=== PATIENT | female | born 1975 ===

== ENCOUNTER 2022-01-30 04:02 | Inpatient (IN) | payer OTHER ==
[2022-01-25 17:04] VITALS: BMI 31.6
[2022-01-30] MEDS ORDERED: ePHEDrine SULFATE 50 MG/1 ML AMPULE ONE (07:26)
[2022-01-30] MEDS ORDERED: ONDANSETRON 4 MG/2 ML VIAL ONE (07:26)
[2022-01-30] MEDS ORDERED: DEXAMETHASONE SOD PHOSPHATE 4 MG/1 ML VIAL ONE (07:26)
[2022-01-30] MEDS ORDERED: FENTANYL CITRATE/PF 50 MCG/ML VIAL ONE ×5 (07:26→09:15)
[2022-01-30] MEDS ORDERED: LIDOCAINE HCL 2% 100 MG/5 ML DISP.SYRIN ONE (07:26)
[2022-01-30] MEDS ORDERED: PROPOFOL 20 ML ONE ×11 (07:27→10:02)
[2022-01-30] MEDS ORDERED: SUCCINYLCHOLINE CHLORIDE 200 MG/10 ML SYRINGE ONE (07:27)
[2022-01-30] MEDS ORDERED: ROCURONIUM BROMIDE 50 MG/5 ML SYRINGE ONE (07:27)
[2022-01-30] MEDS ORDERED: MIDAZOLAM HCL 2 MG/2 ML SINGLE DOSE VIAL ONE (07:28)
[2022-01-30] MEDS ORDERED: ACETAMINOPHEN INJECTION 100 ML IVPB ONE (08:54)
[2022-01-30] MEDS ORDERED: ceFAZolin SODIUM 1 GM VIAL ONE (09:08)
[2022-01-30] MEDS ORDERED: ceFAZolin 2 GRAM PREMIX BAG IVPB ONE (09:10)
[2022-01-30] MEDS ORDERED: VANCOMYCIN 1,000 MG VIAL (RESTRICTED TO ID ONLY) ONE (11:10)
[2022-01-30] MEDS ORDERED: HYDROmorphone HCl 2 MG/ML VIAL ONE ×2 (11:11→12:50)
[2022-01-30] MEDS ORDERED: oxyCODONE HCL 5 MG TABLET PO PRN ×2 (11:38)
[2022-01-30] MEDS ORDERED: ONDANSETRON 4 MG/2 ML VIAL IVPUSH PRN (11:38)
[2022-01-30] MEDS ORDERED: VANCOMYCIN 1,000 MG VIAL (RESTRICTED TO ID ONLY) IVPB ONE (11:40)
[2022-01-30] MEDS ORDERED: LACTATED RINGERS SOLUTION 1,000 ML/1,000 ML INFUS.BAG IV SCH ×2 (11:45→20:30)
[2022-01-30] MEDS ORDERED: HYDROmorphone HCl 2 MG/ML VIAL IVPUSH PRN ×2 (11:51)
[2022-01-30] MEDS ORDERED: PROMETHAZINE HCL 25 MG/1 ML VIAL IVPUSH PRN (11:52)
[2022-01-30] MEDS ORDERED: LACTATED RINGERS SOLUTION 1,000 ML IV SCH (12:00)
[2022-01-30] MEDS ORDERED: HYDROmorphone HCl 2 MG/ML VIAL IVPUSH ONE ×3 (12:55→17:45)
[2022-01-30] MEDS: DOCUSATE SODIUM 100 MG CAPSULE (FP) PO SCH ×2 (20:28→22:06)
[2022-01-30] MEDS ORDERED: ACETAMINOPHEN 1000 MG/100 ML BAG IVPB ONE (21:57)
[2022-01-30] MEDS: TOPIRAMATE 200 MG TABLET PO SCH (22:07)
[2022-01-31] MEDS ORDERED: HYDROmorphone HCl 2 MG/ML VIAL IVPUSH ONE ×2 (00:14→03:16)
[2022-01-31] MEDS: DOCUSATE SODIUM 100 MG CAPSULE (FP) PO SCH ×3 (05:25→22:09)
[2022-01-31] MEDS: TOPIRAMATE 200 MG TABLET PO SCH ×3 (08:08→22:08)
[2022-01-31 09:34] LABS: HEMATOCRIT 33.5 % (32.4-45.2); HEMOGLOBIN 11.2 GM/dL (10.7-15.3); MCH 27.7 pg (25.7-33.7); MCHC 33.5 g/dl (32.0-36.0); MEAN CELL VOLUME 82.8 fl (80-96); MEAN PLT VOLUME 7.7 fl (7.5-11.1); PLATELET COUNT 207 10^3/uL (134-434); RBC 4.05 M/mm3 (3.60-5.2); RDW 14.2 % (11.6-15.6); WHITE BLOOD COUNT 5.5 K/mm3 (4.0-10.0)
[2022-01-31 10:20] LABS: CALCIUM 8.3 mg/dL (8.5-10.1)
[2022-01-31 10:24] LABS: CREATININE 0.6 mg/dL (0.55-1.3)
[2022-01-31] MEDS ORDERED: ceFAZolin SODIUM 1 GM VIAL ONE (13:07)
[2022-01-31] MEDS ORDERED: THROMBIN (BOVINE) 5,000 UNIT VIAL TP ONE ×2 (13:08)
[2022-01-31] MEDS ORDERED: DEXAMETHASONE SOD PHOSPHATE 4 MG/1 ML VIAL ONE (14:03)
[2022-01-31] MEDS ORDERED: FENTANYL CITRATE/PF 50 MCG/ML VIAL ONE ×2 (14:03→14:04)
[2022-01-31] MEDS ORDERED: ONDANSETRON 4 MG/2 ML VIAL ONE (14:03)
[2022-01-31] MEDS ORDERED: LIDOCAINE HCL/PF 2% SDV 5ML VIAL ONE (14:03)
[2022-01-31] MEDS ORDERED: MIDAZOLAM HCL 2 MG/2 ML SINGLE DOSE VIAL ONE (14:04)
[2022-01-31] MEDS ORDERED: PROPOFOL 20 ML ONE ×10 (14:04→17:20)
[2022-01-31] MEDS ORDERED: ROCURONIUM BROMIDE 50 MG/5 ML SYRINGE ONE (14:04)
[2022-01-31] MEDS ORDERED: HYDROmorphone HCl 2 MG/ML VIAL ONE (15:13)
[2022-01-31] MEDS ORDERED: ceFAZolin SODIUM 1 GM VIAL IVPB ONE ×2 (15:20→15:33)
[2022-01-31] MEDS ORDERED: PHENYLEPHRINE HCL 10 MG/1 ML SINGLE DOSE VIAL ONE (15:59)
[2022-01-31] MEDS ORDERED: SEVOFLURANE 250 ML BTL ONE (16:50)
[2022-01-31] MEDS ORDERED: LACTATED RINGERS SOLUTION 1,000 ML IV SCH ×2 (19:45→20:55)
[2022-01-31] MEDS ORDERED: HYDROmorphone *PCA* 10MG/50ML DISP.SYRIN PCA SCH (19:45)
[2022-01-31] MEDS ORDERED: HYDROmorphone *PCA* 10MG/50ML DISP.SYRIN ONE (19:55)
[2022-01-31] MEDS ORDERED: ONDANSETRON 4 MG/2 ML VIAL IVPUSH PRN (20:55)
[2022-01-31] MEDS: LACTATED RINGERS SOLUTION 1,000 ML/1,000 ML INFUS.BAG IV SCH (22:09)
[2022-01-31] MEDS: HYDROmorphone *PCA* 10MG/50ML DISP.SYRIN PCA SCH (22:11)
[2022-02-01] MEDS: DOCUSATE SODIUM 100 MG CAPSULE (FP) PO SCH ×3 (06:00→21:41)
[2022-02-01] MEDS: TOPIRAMATE 200 MG TABLET PO SCH ×2 (09:33→21:40)
[2022-02-01] MEDS ORDERED: ceFAZolin SODIUM 1 GM VIAL ONE (16:23)
[2022-02-01] MEDS ORDERED: DEXTROSE 5%-WATER - 50 ML IVPB ONE (16:23)
[2022-02-01] MEDS: HYDROmorphone *PCA* 10MG/50ML DISP.SYRIN PCA SCH ×2 (16:33→22:36)
[2022-02-01] MEDS: CEFAZOLIN 1 GM in DEXTROSE 5%-WATER - 50 ML IVPB SCH (16:38)
[2022-02-01] MEDS: LACTATED RINGERS SOLUTION 1,000 ML/1,000 ML INFUS.BAG IV SCH (20:26)
[2022-02-02] MEDS ORDERED: ceFAZolin SODIUM 1 GM VIAL ONE ×3 (01:42→17:51)
[2022-02-02] MEDS ORDERED: DEXTROSE 5%-WATER - 50 ML IVPB ONE ×3 (01:42→17:52)
[2022-02-02] MEDS: CEFAZOLIN 1 GM in DEXTROSE 5%-WATER - 50 ML IVPB SCH ×3 (02:24→18:06)
[2022-02-02 08:37] LABS: BASO % 0.6 % (0-2.0); EOS % 1.7 % (0-4.5); HEMATOCRIT 31.5 % (32.4-45.2); HEMOGLOBIN 10.5 GM/dL (10.7-15.3); LYMPH % 28.9 % (8-40); MCH 27.6 pg (25.7-33.7); MCHC 33.3 g/dl (32.0-36.0); MEAN CELL VOLUME 83.1 fl (80-96); MEAN PLT VOLUME 7.7 fl (7.5-11.1); MONO % 10.4 % (3.8-10.2); NEUT % 58.4 % (42.8-82.8); PLATELET COUNT 214 10^3/uL (134-434); RDW 14.7 % (11.6-15.6)
[2022-02-02 09:15] LABS: CALCIUM 8.3 mg/dL (8.5-10.1)
[2022-02-02 09:16] LABS: BLOOD UREA NITROGEN 4.5 mg/dL (7-18)
[2022-02-02] MEDS: TOPIRAMATE 200 MG TABLET PO SCH ×2 (09:16→21:54)
[2022-02-02] MEDS: DOCUSATE SODIUM 100 MG CAPSULE (FP) PO SCH ×3 (09:18→21:54)
[2022-02-02 09:19] LABS: CREATININE 0.5 mg/dL (0.55-1.3)
[2022-02-02] MEDS: LACTATED RINGERS SOLUTION 1,000 ML/1,000 ML INFUS.BAG IV SCH ×2 (11:06→21:53)
[2022-02-02] MEDS: PANTOPRAZOLE 20 MG TABLET PO SCH (18:23)
[2022-02-02] MEDS: HYDROmorphone *PCA* 10MG/50ML DISP.SYRIN PCA SCH (23:54)
[2022-02-03] MEDS ORDERED: DEXTROSE 5%-WATER - 50 ML IVPB ONE ×2 (01:06→09:35)
[2022-02-03] MEDS ORDERED: ceFAZolin SODIUM 1 GM VIAL ONE ×2 (01:06→09:35)
[2022-02-03] MEDS: CEFAZOLIN 1 GM in DEXTROSE 5%-WATER - 50 ML IVPB SCH ×3 (01:27→18:07)
[2022-02-03] MEDS: HYDROmorphone *PCA* 10MG/50ML DISP.SYRIN PCA SCH (02:59)
[2022-02-03] MEDS: DOCUSATE SODIUM 100 MG CAPSULE (FP) PO SCH ×3 (05:21→21:37)
[2022-02-03 07:28] LABS: BASO % 0.8 % (0-2.0); EOS % 3.8 % (0-4.5); HEMATOCRIT 36.2 % (32.4-45.2); HEMOGLOBIN 12.2 GM/dL (10.7-15.3); LYMPH % 33.3 % (8-40); MCHC 33.6 g/dl (32.0-36.0); MEAN CELL VOLUME 83.4 fl (80-96); MEAN PLT VOLUME 7.9 fl (7.5-11.1); MONO % 8.2 % (3.8-10.2); NEUT % 53.9 % (42.8-82.8); PLATELET COUNT 211 10^3/uL (134-434); RBC 4.35 M/mm3 (3.60-5.2); RDW 14.5 % (11.6-15.6); WHITE BLOOD COUNT 6.2 K/mm3 (4.0-10.0)
[2022-02-03 07:58] LABS: BLOOD UREA NITROGEN 5.7 mg/dL (7-18); CALCIUM 8.8 mg/dL (8.5-10.1)
[2022-02-03 08:02] LABS: CREATININE 0.5 mg/dL (0.55-1.3)
[2022-02-03] MEDS: PANTOPRAZOLE 20 MG TABLET PO SCH (09:50)
[2022-02-03] MEDS: TOPIRAMATE 200 MG TABLET PO SCH ×2 (09:51→21:37)
[2022-02-03] MEDS: HYDROmorphone HCl 2 MG/ML VIAL IVPB PRN ×2 (14:04→20:48)
[2022-02-03] MEDS: LACTATED RINGERS SOLUTION 1,000 ML/1,000 ML INFUS.BAG IV SCH ×2 (14:12→21:37)
[2022-02-03] MEDS: oxyCODONE HCL 5 MG TABLET PO PRN (17:30)
[2022-02-03] MEDS ORDERED: diphenhydrAMINE HCL 25 MG CAPSULE (FP) PO ONE (22:06)
[2022-02-04] MEDS ORDERED: ceFAZolin SODIUM 1 GM VIAL ONE ×3 (00:36→17:14)
[2022-02-04] MEDS ORDERED: DEXTROSE 5%-WATER - 50 ML IVPB ONE ×3 (00:36→17:15)
[2022-02-04] MEDS: CEFAZOLIN 1 GM in DEXTROSE 5%-WATER - 50 ML IVPB SCH ×3 (01:12→17:24)
[2022-02-04] MEDS: oxyCODONE HCL 5 MG TABLET PO PRN ×5 (01:23→20:52)
[2022-02-04] MEDS: LACTATED RINGERS SOLUTION 1,000 ML/1,000 ML INFUS.BAG IV SCH ×3 (03:41→23:56)
[2022-02-04] MEDS: DOCUSATE SODIUM 100 MG CAPSULE (FP) PO SCH ×3 (06:13→21:14)
[2022-02-04] MEDS: HYDROmorphone HCl 2 MG/ML VIAL IVPB PRN (07:53)
[2022-02-04] MEDS: TOPIRAMATE 200 MG TABLET PO SCH ×2 (09:32→21:14)
[2022-02-04] MEDS: PANTOPRAZOLE 20 MG TABLET PO SCH (09:32)
[2022-02-04 11:19] LABS: BASO % 0.9 % (0-2.0); EOS % 4.4 % (0-4.5); HEMATOCRIT 33.7 % (32.4-45.2); HEMOGLOBIN 11.1 GM/dL (10.7-15.3); LYMPH % 34.3 % (8-40); MCH 27.1 pg (25.7-33.7); MCHC 32.8 g/dl (32.0-36.0); MEAN CELL VOLUME 82.5 fl (80-96); MEAN PLT VOLUME 7.9 fl (7.5-11.1); MONO % 9.2 % (3.8-10.2); NEUT % 51.2 % (42.8-82.8); PLATELET COUNT 291 10^3/uL (134-434); RBC 4.08 M/mm3 (3.60-5.2); RDW 14.3 % (11.6-15.6); WHITE BLOOD COUNT 5.6 K/mm3 (4.0-10.0)
[2022-02-04 11:33] LABS: CALCIUM 8.5 mg/dL (8.5-10.1)
[2022-02-04 11:34] LABS: BLOOD UREA NITROGEN 6.2 mg/dL (7-18)
[2022-02-04 11:37] LABS: CREATININE 0.5 mg/dL (0.55-1.3)
[2022-02-04] MEDS: POLYETHYLENE GLYCOL (HEALTHYLAX) 3350 17 GM PACKET PO SCH (13:49)
[2022-02-05] MEDS ORDERED: ceFAZolin SODIUM 1 GM VIAL ONE ×3 (01:14→18:04)
[2022-02-05] MEDS ORDERED: DEXTROSE 5%-WATER - 50 ML IVPB ONE ×3 (01:15→18:04)
[2022-02-05] MEDS: CEFAZOLIN 1 GM in DEXTROSE 5%-WATER - 50 ML IVPB SCH ×3 (01:25→18:09)
[2022-02-05] MEDS: DOCUSATE SODIUM 100 MG CAPSULE (FP) PO SCH ×3 (05:33→21:19)
[2022-02-05] MEDS: HYDROmorphone HCl 2 MG/ML VIAL IVPB PRN ×3 (05:36→20:26)
[2022-02-05 08:44] LABS: BASO % 0.6 % (0-2.0); EOS % 3.9 % (0-4.5); HEMATOCRIT 32.2 % (32.4-45.2); HEMOGLOBIN 10.9 GM/dL (10.7-15.3); LYMPH % 29.6 % (8-40); MCH 27.5 pg (25.7-33.7); MCHC 33.7 g/dl (32.0-36.0); MEAN CELL VOLUME 81.5 fl (80-96); MEAN PLT VOLUME 7.5 fl (7.5-11.1); MONO % 8.8 % (3.8-10.2); NEUT % 57.1 % (42.8-82.8); PLATELET COUNT 305 10^3/uL (134-434); RBC 3.95 M/mm3 (3.60-5.2); RDW 14.3 % (11.6-15.6); WHITE BLOOD COUNT 6.4 K/mm3 (4.0-10.0)
[2022-02-05 09:07] LABS: CALCIUM 8.5 mg/dL (8.5-10.1)
[2022-02-05 09:11] LABS: CREATININE 0.4 mg/dL (0.55-1.3)
[2022-02-05] MEDS: PANTOPRAZOLE 20 MG TABLET PO SCH (10:04)
[2022-02-05] MEDS: POLYETHYLENE GLYCOL (HEALTHYLAX) 3350 17 GM PACKET PO SCH (10:05)
[2022-02-05] MEDS: TOPIRAMATE 200 MG TABLET PO SCH ×2 (10:08→21:20)
[2022-02-05] MEDS: oxyCODONE HCL 5 MG TABLET PO PRN (11:40)
[2022-02-05 14:42] LABS: PH,URINE 7.5 (5.0-8.0); URINE APPEARANCE CLEAR; URINE BILIRUBIN NEGATIVE (NEGATIVE); URINE COLOR YELLOW; URINE GLUCOSE (UA) NEGATIVE (NEGATIVE); URINE KETONE TRACE (NEGATIVE); URINE LEUK ESTERASE NEGATIVE (NEGATIVE); URINE NITRITE NEGATIVE (NEGATIVE); URINE PROTEIN NEGATIVE (NEGATIVE)
[2022-02-06] MEDS ORDERED: DEXTROSE 5%-WATER - 50 ML IVPB ONE ×2 (00:40→07:45)
[2022-02-06] MEDS ORDERED: ceFAZolin SODIUM 1 GM VIAL ONE ×2 (00:40→07:45)
[2022-02-06] MEDS: oxyCODONE HCL 5 MG TABLET PO PRN ×4 (00:43→10:44)
[2022-02-06] MEDS: CEFAZOLIN 1 GM in DEXTROSE 5%-WATER - 50 ML IVPB SCH ×2 (02:13→10:34)
[2022-02-06] MEDS: DOCUSATE SODIUM 100 MG CAPSULE (FP) PO SCH (05:45)
[2022-02-06 07:52] VITALS: BP 111/78; PULSE 96; TEMP 98
[2022-02-06 09:18] LABS: BASO % 0.7 % (0-2.0); EOS % 5.3 % (0-4.5); HEMATOCRIT 34.2 % (32.4-45.2); HEMOGLOBIN 11.3 GM/dL (10.7-15.3); LYMPH % 39.2 % (8-40); MCH 27.4 pg (25.7-33.7); MEAN CELL VOLUME 82.9 fl (80-96); MEAN PLT VOLUME 7.7 fl (7.5-11.1); MONO % 11.1 % (3.8-10.2); NEUT % 43.7 % (42.8-82.8); PLATELET COUNT 347 10^3/uL (134-434); RBC 4.12 M/mm3 (3.60-5.2); RDW 14.1 % (11.6-15.6); WHITE BLOOD COUNT 6.1 K/mm3 (4.0-10.0)
[2022-02-06 10:07] LABS: BLOOD UREA NITROGEN 10.1 mg/dL (7-18); CALCIUM 9.2 mg/dL (8.5-10.1)
[2022-02-06 10:11] LABS: CREATININE 0.6 mg/dL (0.55-1.3)
[2022-02-06] MEDS: PANTOPRAZOLE 20 MG TABLET PO SCH (10:34)
[2022-02-06] MEDS: TOPIRAMATE 200 MG TABLET PO SCH (10:34)
[2022-02-06] MEDS: POLYETHYLENE GLYCOL (HEALTHYLAX) 3350 17 GM PACKET PO SCH (10:34)
== END 2022-02-06 12:47 | disposition home or self-care (01) | DRG 850 ==
LOC: J2C 04:02 → J8W 20:07
PROVIDERS: ADMIT Neurological Surgery; ATTEND Internal Medicine
PROC: 0RB30ZZ Excision of Cervical Vertebral Disc, Open Approach (ICD-10-PCS; 2022-01-30)
PROC: 01N10ZZ Release Cervical Nerve, Open Approach (ICD-10-PCS; 2022-01-30)
PROC: 0RG40A0 Fusion of Cervicothoracic Vertebral Joint with Interbody Fusion Device, Anterior Approach, Anterior Column, Open Approach (ICD-10-PCS; 2022-01-30)
PROC: 0RB50ZZ Excision of Cervicothoracic Vertebral Disc, Open Approach (ICD-10-PCS; 2022-01-30)
PROC: 4A1004G Monitoring of Central Nervous Electrical Activity, Intraoperative, Open Approach (ICD-10-PCS; 2022-01-30)
PROC: 0RG20A0 Fusion of 2 or more Cervical Vertebral Joints with Interbody Fusion Device, Anterior Approach, Anterior Column, Open Approach (ICD-10-PCS; principal; 2022-01-30 08:00)
PROC: 0RG2071 Fusion of 2 or more Cervical Vertebral Joints with Autologous Tissue Substitute, Posterior Approach, Posterior Column, Open Approach (ICD-10-PCS; 2022-01-31)
PROC: 0RG4071 Fusion of Cervicothoracic Vertebral Joint with Autologous Tissue Substitute, Posterior Approach, Posterior Column, Open Approach (ICD-10-PCS; 2022-01-31)
PROC: 4A11X4G Monitoring of Peripheral Nervous Electrical Activity, Intraoperative, External Approach (ICD-10-PCS; 2022-01-31)
DX: M96.0 Pseudarthrosis after fusion or arthrodesis (principal); R51.9 Headache, unspecified
CPT/HCPCS: 36415; 71045-TC-FY; 72040-TC; 76000-TC-FY; 80048; 81003; 85025; 85027; 86850; 86900; 86901; 86922; 87040; 87077; 87086; 88300-TC; 94760; 97116-GP; 97162-GP

== ENCOUNTER 2022-08-05 04:01 | Inpatient (IN) | payer OTHER ==
[2022-07-30 16:51] VITALS: BMI 28.3
[~2022-08-05 04:01] MED LIST: ceFAZolin SODIUM 1 GM VIAL IVPB ONE
[2022-08-05] MEDS ORDERED: ceFAZolin SODIUM 1 GM VIAL ONE ×2 (07:28→17:27)
[2022-08-05] MEDS ORDERED: PROPOFOL 60 ML ONE ×3 (07:36→08:22)
[2022-08-05] MEDS ORDERED: PROPOFOL 40 ML ONE (07:39)
[2022-08-05] MEDS ORDERED: MIDAZOLAM HCL 2 MG/2 ML SINGLE DOSE VIAL ONE ×2 (07:47→10:23)
[2022-08-05] MEDS ORDERED: KETAMINE HCL 500 MG/10 ML VIAL ONE (07:47)
[2022-08-05] MEDS ORDERED: FENTANYL CITRATE/PF 50 MCG/ML VIAL ONE ×8 (07:47→14:22)
[2022-08-05] MEDS ORDERED: SUCCINYLCHOLINE CHLORIDE 200 MG/10 ML SYRINGE ONE ×2 (07:50→08:11)
[2022-08-05] MEDS ORDERED: ROCURONIUM BROMIDE 50 MG/5 ML SYRINGE ONE (07:50)
[2022-08-05] MEDS ORDERED: DEXMEDETOMIDINE HCL 200 MCG/2 ML IVPB ONE (07:54)
[2022-08-05] MEDS ORDERED: LIDOCAINE HCL/PF 2% SDV 5ML VIAL ONE (08:12)
[2022-08-05] MEDS ORDERED: PROPOFOL 80 ML ONE (09:39)
[2022-08-05] MEDS ORDERED: PROPOFOL 20 ML ONE ×5 (09:39→11:11)
[2022-08-05] MEDS ORDERED: ceFAZolin SODIUM 1 GM VIAL IVPB ONE ×2 (09:55→12:10)
[2022-08-05] MEDS ORDERED: ONDANSETRON 4 MG/2 ML VIAL IVPUSH PRN ×2 (13:08→13:45)
[2022-08-05] MEDS ORDERED: LACTATED RINGERS SOLUTION 1,000 ML IV SCH (13:15)
[2022-08-05] MEDS ORDERED: morphine CARPU-JECT 4 MG/1 ML DISP.SYRIN IVPUSH PRN (13:45)
[2022-08-05] MEDS ORDERED: diphenhydrAMINE HCL 25 MG CAPSULE (FP) PO PRN (13:45)
[2022-08-05] MEDS ORDERED: HYDROmorphone *PCA* 10MG/50ML DISP.SYRIN ONE (13:50)
[2022-08-05] MEDS: HYDROmorphone *PCA* 10MG/50ML DISP.SYRIN PCA SCH ×2 (14:34→14:45)
[2022-08-05] MEDS ORDERED: HYDROmorphone *PCA* 10MG/50ML DISP.SYRIN PCA SCH ×2 (15:21→15:30)
[2022-08-05] MEDS: LACTATED RINGERS SOLUTION 1,000 ML/1,000 ML INFUS.BAG IV SCH (18:20)
[2022-08-05] MEDS: DOCUSATE SODIUM 100 MG CAPSULE (FP) PO SCH ×2 (18:50→22:01)
[2022-08-05] MEDS: GABAPENTIN 400 MG CAPSULE PO SCH ×2 (18:50→22:01)
[2022-08-05] MEDS: ceFAZolin 2 GRAM PREMIX BAG IVPB SCH (20:00)
[2022-08-05] MEDS: CYCLOBENZAPRINE HCL 10 MG TABLET (FP) PO SCH (22:01)
[2022-08-05] MEDS: TOPIRAMATE 100 MG TABLET PO SCH (22:49)
[2022-08-06] MEDS ORDERED: CEFAZOLIN SODIUM 2 GM in DEXTROSE 5%-WATER - 50 ML IVPB ONE (04:45)
[2022-08-06] MEDS: GABAPENTIN 400 MG CAPSULE PO SCH ×4 (05:07→21:11)
[2022-08-06] MEDS: ceFAZolin 2 GRAM PREMIX BAG IVPB SCH (05:07)
[2022-08-06] MEDS: DOCUSATE SODIUM 100 MG CAPSULE (FP) PO SCH ×4 (05:08→21:11)
[2022-08-06] MEDS: CYCLOBENZAPRINE HCL 10 MG TABLET (FP) PO SCH ×3 (10:26→21:11)
[2022-08-06] MEDS: LORATADINE 10 MG TABLET PO SCH (10:26)
[2022-08-06] MEDS: PANTOPRAZOLE 20 MG TABLET PO SCH (10:26)
[2022-08-06] MEDS: TOPIRAMATE 100 MG TABLET PO SCH ×3 (10:27→21:11)
[2022-08-06 10:42] LABS: BASO % 0.5 % (0-2.0); EOS % 0.5 % (0-4.5); HEMATOCRIT 16.8 % (32.4-45.2); LYMPH % 35.8 % (8-40); MCH 24.5 pg (25.7-33.7); MCHC 31.3 g/dl (32.0-36.0); MEAN CELL VOLUME 78.4 fl (80-96); MEAN PLT VOLUME 8.4 fl (7.5-11.1); MONO % 9.4 % (3.8-10.2); NEUT % 53.8 % (42.8-82.8); PLATELET COUNT 115 10^3/uL (134-434); RBC 2.14 M/mm3 (3.60-5.2); WHITE BLOOD COUNT 3.4 K/mm3 (4.0-10.0)
[2022-08-06 10:52] LABS: HEMOGLOBIN 5.2 GM/dL (10.7-15.3)
[2022-08-06 11:05] LABS: CHLORIDE 112 mmol/L (98-107); SODIUM 142 mmol/L (136-145)
[2022-08-06 11:09] LABS: ALBUMIN 1.3 g/dl (3.4-5.0); ANION GAP 18 MMOL/L (8-16); CO2 13 mmol/L (21-32); GLUCOSE,RANDOM 65 mg/dL (74-106)
[2022-08-06 11:12] LABS: SGOT/AST 91 U/L (15-37); SGPT/ALT 77 U/L (13-61)
[2022-08-06 11:14] LABS: ALK PHOS 23 U/L (45-117); BILIRUBIN,TOTAL < 0.1 mg/dL (0.2-1); CREATININE 0.2 mg/dL (0.55-1.3); TOT PROT 2.6 g/dl (6.4-8.2)
[2022-08-06 11:18] LABS: CALCIUM 6.7 mg/dL (8.5-10.1)
[2022-08-06] MEDS ORDERED: ACETAMINOPHEN 1000 MG/100 ML BAG IVPB PRN ×3 (11:47→20:37)
[2022-08-06] MEDS: LACTATED RINGERS SOLUTION 1,000 ML/1,000 ML INFUS.BAG IV SCH ×2 (12:30→22:50)
[2022-08-06] MEDS ORDERED: ACETAMINOPHEN 1000 MG/100 ML BAG IVPB ONE ×2 (13:15→20:34)
[2022-08-06] MEDS: oxyCODONE HCL 5 MG TABLET PO PRN ×2 (18:27→22:48)
[2022-08-06 20:55] LABS: HEMATOCRIT 30.1 % (32.4-45.2); HEMOGLOBIN 9.8 GM/dL (10.7-15.3); MCH 25.5 pg (25.7-33.7); MCHC 32.4 g/dl (32.0-36.0); MEAN CELL VOLUME 78.6 fl (80-96); MEAN PLT VOLUME 8.1 fl (7.5-11.1); PLATELET COUNT 181 10^3/uL (134-434); RBC 3.83 M/mm3 (3.60-5.2); RDW 16.4 % (11.6-15.6); WHITE BLOOD COUNT 7.1 K/mm3 (4.0-10.0)
[2022-08-07 01:02] LABS: EPI CELLS 2 /uL (0-25.1); HYALINE CASTS 0 /uL (0-3.1); PH,URINE 7.5 (5.0-8.0); URINE APPEARANCE CLEAR; URINE BACTERIA 3 /uL (0-1359); URINE BILIRUBIN NEGATIVE (NEGATIVE); URINE COLOR YELLOW; URINE GLUCOSE (UA) NEGATIVE (NEGATIVE); URINE KETONE TRACE (NEGATIVE); URINE LEUK ESTERASE NEGATIVE (NEGATIVE); URINE NITRITE NEGATIVE (NEGATIVE); URINE PROTEIN NEGATIVE (NEGATIVE); URINE RBC 49 /uL (0-23.9); URINE UROBILINOGEN 0.2 mg/dL (0.2-1.0); URINE WBC 2 /uL (0-25.8)
[2022-08-07] MEDS ORDERED: VANCOMYCIN HCL 1,500 MG in DEXTROSE 5%-WATER - 500 ML IVPB ONE (03:34)
[2022-08-07] MEDS: oxyCODONE HCL 5 MG TABLET PO PRN ×5 (04:32→21:51)
[2022-08-07] MEDS: DOCUSATE SODIUM 100 MG CAPSULE (FP) PO SCH ×3 (05:19→21:51)
[2022-08-07] MEDS: GABAPENTIN 400 MG CAPSULE PO SCH ×3 (05:19→21:51)
[2022-08-07] MEDS: LORATADINE 10 MG TABLET PO SCH (09:53)
[2022-08-07] MEDS: PANTOPRAZOLE 20 MG TABLET PO SCH (09:53)
[2022-08-07] MEDS: CYCLOBENZAPRINE HCL 10 MG TABLET (FP) PO SCH ×2 (09:53→21:51)
[2022-08-07] MEDS: TOPIRAMATE 100 MG TABLET PO SCH ×2 (09:54→23:01)
[2022-08-07] MEDS ORDERED: PIPERACILLIN/TAZOB 3.375 GM 3.375 GM in DEXTROSE 5%-WATER - 50 ML IVPB SCH ×2 (10:00→10:10)
[2022-08-07] MEDS ORDERED: PIPERACILLIN/TAZOB 3.375 GM 3.375 GM/50 ML BAG IVPB SCH (10:00)
[2022-08-07 10:03] LABS: BASO % 0.6 % (0-2.0); EOS % 1.3 % (0-4.5); HEMATOCRIT 29.4 % (32.4-45.2); HEMOGLOBIN 9.6 GM/dL (10.7-15.3); LYMPH % 28.9 % (8-40); MCH 25.3 pg (25.7-33.7); MCHC 32.6 g/dl (32.0-36.0); MEAN CELL VOLUME 77.8 fl (80-96); MEAN PLT VOLUME 8.1 fl (7.5-11.1); MONO % 8.5 % (3.8-10.2); NEUT % 60.7 % (42.8-82.8); PLATELET COUNT 191 10^3/uL (134-434); RBC 3.78 M/mm3 (3.60-5.2); RDW 16.2 % (11.6-15.6); WHITE BLOOD COUNT 5.8 K/mm3 (4.0-10.0)
[2022-08-07 10:36] LABS: BLOOD UREA NITROGEN 5.9 mg/dL (7-18)
[2022-08-07 10:39] LABS: BILIRUBIN,TOTAL 0.4 mg/dL (0.2-1); CREATININE 0.5 mg/dL (0.55-1.3)
[2022-08-07 10:49] LABS: ALBUMIN 2.7 g/dl (3.4-5.0); CALCIUM 7.9 mg/dL (8.5-10.1); TOT PROT 5.6 g/dl (6.4-8.2)
[2022-08-07] MEDS: LACTATED RINGERS SOLUTION 1,000 ML/1,000 ML INFUS.BAG IV SCH (14:25)
[2022-08-07] MEDS ORDERED: VANCOMYCIN 1,000 MG in DEXTROSE 5%-WATER - 250 ML IVPB SCH (15:00)
[2022-08-07] MEDS: CEFEPIME 1 GM in DEXTROSE 5%-WATER 100 ML IVPB SCH ×2 (15:34→21:51)
[2022-08-07] MEDS: VANCOMYCIN/WATER FOR INJ (PEG) 1,000 MG/200 ML BAG IVPB SCH (17:27)
[2022-08-08] MEDS: oxyCODONE HCL 5 MG TABLET PO PRN ×2 (02:22→17:55)
[2022-08-08] MEDS: CEFEPIME 1 GM in DEXTROSE 5%-WATER 100 ML IVPB SCH ×3 (02:22→17:07)
[2022-08-08] MEDS: VANCOMYCIN/WATER FOR INJ (PEG) 1,000 MG/200 ML BAG IVPB SCH ×2 (04:00→16:09)
[2022-08-08 06:04] VITALS: RESP 18
[2022-08-08] MEDS: GABAPENTIN 400 MG CAPSULE PO SCH ×3 (06:28→21:45)
[2022-08-08] MEDS: DOCUSATE SODIUM 100 MG CAPSULE (FP) PO SCH ×3 (06:28→21:45)
[2022-08-08] MEDS: TOPIRAMATE 100 MG TABLET PO SCH ×2 (09:36→21:45)
[2022-08-08] MEDS: PANTOPRAZOLE 20 MG TABLET PO SCH (09:36)
[2022-08-08] MEDS: CYCLOBENZAPRINE HCL 10 MG TABLET (FP) PO SCH ×2 (09:36→21:45)
[2022-08-08] MEDS: LORATADINE 10 MG TABLET PO SCH (09:36)
[2022-08-08] MEDS: LACTATED RINGERS SOLUTION 1,000 ML/1,000 ML INFUS.BAG IV SCH ×2 (16:00→16:10)
[2022-08-08] MEDS ORDERED: BISACODYL 10 MG SUPP.RECT PR PRN (18:27)
[2022-08-08] MEDS: POLYETHYLENE GLYCOL (HEALTHYLAX) 3350 17 GM PACKET PO SCH (18:58)
[2022-08-09] MEDS: CEFEPIME 1 GM in DEXTROSE 5%-WATER 100 ML IVPB SCH ×2 (01:58→09:16)
[2022-08-09] MEDS: VANCOMYCIN/WATER FOR INJ (PEG) 1,000 MG/200 ML BAG IVPB SCH (03:11)
[2022-08-09] MEDS: DOCUSATE SODIUM 100 MG CAPSULE (FP) PO SCH ×2 (06:21→13:11)
[2022-08-09] MEDS: GABAPENTIN 400 MG CAPSULE PO SCH ×2 (06:21→13:11)
[2022-08-09] MEDS: LACTATED RINGERS SOLUTION 1,000 ML/1,000 ML INFUS.BAG IV SCH ×2 (06:21→13:11)
[2022-08-09] MEDS: oxyCODONE HCL 5 MG TABLET PO PRN (06:25)
[2022-08-09] MEDS: LORATADINE 10 MG TABLET PO SCH (09:16)
[2022-08-09] MEDS: PANTOPRAZOLE 20 MG TABLET PO SCH (09:16)
[2022-08-09] MEDS: TOPIRAMATE 100 MG TABLET PO SCH (09:16)
[2022-08-09] MEDS: CYCLOBENZAPRINE HCL 10 MG TABLET (FP) PO SCH (09:16)
[2022-08-09] MEDS: POLYETHYLENE GLYCOL (HEALTHYLAX) 3350 17 GM PACKET PO SCH (09:17)
[2022-08-09 11:54] LABS: HEMOGLOBIN 9.2 GM/dL (10.7-15.3); MCH 25.9 pg (25.7-33.7); MEAN CELL VOLUME 78.5 fl (80-96); MEAN PLT VOLUME 7.9 fl (7.5-11.1); PLATELET COUNT 226 10^3/uL (134-434); RBC 3.57 M/mm3 (3.60-5.2); WHITE BLOOD COUNT 5.9 K/mm3 (4.0-10.0)
[2022-08-09 12:20] LABS: ALBUMIN 2.8 g/dl (3.4-5.0); CALCIUM 8.2 mg/dL (8.5-10.1)
[2022-08-09 12:21] LABS: BLOOD UREA NITROGEN 4.7 mg/dL (7-18)
[2022-08-09 12:23] LABS: CREATININE 0.6 mg/dL (0.55-1.3)
[2022-08-09 12:25] LABS: BILIRUBIN,TOTAL 0.3 mg/dL (0.2-1)
[2022-08-09 15:54] VITALS: BP 115/68; PULSE 98; TEMP 99.4
== END 2022-08-09 18:50 | disposition home or self-care (01) | DRG 304 ==
LOC: J2C 04:01 → J6S 18:51
PROVIDERS: ADMIT Internal Medicine; ATTEND Internal Medicine
PROC: 0SG1071 Fusion of 2 or more Lumbar Vertebral Joints with Autologous Tissue Substitute, Posterior Approach, Posterior Column, Open Approach (ICD-10-PCS; 2022-08-05)
PROC: 0SP00AZ Removal of Interbody Fusion Device from Lumbar Vertebral Joint, Open Approach (ICD-10-PCS; 2022-08-05)
PROC: 0ST20ZZ Resection of Lumbar Vertebral Disc, Open Approach (ICD-10-PCS; 2022-08-05)
PROC: 01NB0ZZ Release Lumbar Nerve, Open Approach (ICD-10-PCS; 2022-08-05)
PROC: 4A11X4G Monitoring of Peripheral Nervous Electrical Activity, Intraoperative, External Approach (ICD-10-PCS; 2022-08-05)
PROC: 0SG00AJ Fusion of Lumbar Vertebral Joint with Interbody Fusion Device, Posterior Approach, Anterior Column, Open Approach (ICD-10-PCS; principal; 2022-08-05 08:00)
PROC: 30233N1 Transfusion of Nonautologous Red Blood Cells into Peripheral Vein, Percutaneous Approach (ICD-10-PCS; 2022-08-06)
DX: M54.16 Radiculopathy, lumbar region (principal); M41.86 Other forms of scoliosis, lumbar region; R50.82 Postprocedural fever; R79.89 Other specified abnormal findings of blood chemistry; D64.9 Anemia, unspecified; Z88.0 Allergy status to penicillin
CPT/HCPCS: 0241U-QW; 36415; 36430; 71045-TC-FY; 76000-TC-FY; 76705-TC; 80048; 80053; 81003; 85025; 85027; 86850; 86900; 86901; 86922; 87040; 94760; 97116-GP; 97162-GP; C1713; C1889; C9803-CS; P9058; U0003; U0005